=== PATIENT | male | born 1965 | race Caucasian/White ===

== ENCOUNTER 2017-12-03 06:23 | Emergency (ER) | payer MEDICAID ==
--- NOTE | 2017-12-03 07:00 | EDPHY ---
H & P Stated Complaint: general fatigue cough wt loss dizzy for weeks Time Seen by Provider: 12/03/17 06:53 HPI/ROS: CHIEF COMPLAINT: Intermittent chest pain HISTORY OF PRESENT ILLNESS: The patient presents the ED with weeks of intermittent nonexertional chest pain. The patient was seen in the ED approximately a month ago with similar symptoms. He had a negative workup at that point time and was referred to primary care. He tells me he has not been able to have a follow-up appointment because of his work schedule. The patient complains of ongoing intermittent symptoms of chest pain, fatigue and slight dyspnea. The patient denies any asymmetric calf pain or swelling. He denies additional acute complaints. The patient takes no regular medications. REVIEW OF SYSTEMS: A comprehensive 10 point review of systems is otherwise negative aside from elements mentioned in the history of present illness. Source: Patient Exam Limitations: No limitations - Personal History Current Tetanus/Diphtheria Vaccine: No Current Tetanus Diphtheria and Acellular Pertussis (TDAP): No - Medical/Surgical History Hx Asthma: No Hx Chronic Respiratory Disease: No Hx Diabetes: No Hx Cardiac Disease: No Hx Renal Disease: No Hx Cirrhosis: No Hx Alcoholism: Yes Hx HIV/AIDS: No Hx Splenectomy or Spleen Trauma: No Other PMH: Pneumothorax - Family History Significant Family History: No pertinent family hx - Social History Smoking Status: Current every day smoker - Physical Exam Exam: General Appearance: Alert, no distress Eyes: Pupils equal and round no pallor or injection ENT, Mouth: Mucous membranes moist Respiratory: There are no retractions, lungs are clear to auscultation Cardiovascular: Regular rate and rhythm Gastrointestinal: Abdomen is soft and nontender, no masses, bowel sounds normal Neurological: A&O, normal motor function, normal sensory exam, normal cranial nerves Skin: Warm and dry, no rashes Musculoskeletal: Neck is supple nontender Extremities: symmetrical, full range of motion Psychiatric: Patient is oriented X 3, there is no agitation Constitutional: Initial Vital Signs Temperature (C) 36.8 C 12/03/17 06:26 Heart Rate 77 12/03/17 06:26 Respiratory Rate 18 12/03/17 06:26 Blood Pressure 120/74 12/03/17 06:26 O2 Sat (%) 93 12/03/17 06:26 O2 Delivery Mode Room Air Allergies/Adverse Reactions: No Known Allergies Allergy (Unverified 10/31/17 13:04) Home Medications: Medication Instructions Recorded NK [No Known Home Meds] 10/31/17 Medical Decision Making - Diagnostics EKG Interpretation: EKG: Complete interpretation has been separately recorded in the [facility] archive. Summary impression: Sinus rhythm, rate 68 ED Course/Re-evaluation: The patient presents to the ED with complaints of intermittent chest pain, fatigue and weakness for the past several weeks. I reviewed the results of his workup from the emergency department 1 month ago. At that point time the patient was referred to a primary care provider and has not yet made that appointment. Workup in the emergency department today continues to demonstrate a normal EKG. The patient's troponin continues to be undetectable. The patient did have a negative chest x-ray performed 1 month ago. He has no acute respiratory symptoms and I feel does not need to have a repeat study. Additionally, the patient had a negative D-dimer which I feel adequately excludes pulmonary embolism in this low risk by Wells criteria patient. I do feel the patient is low risk with a HEART score of 2 for age and smoking. The patient will be referred to our on-call glycerin supervisor for consideration of a treadmill stress test for further evaluation of his symptoms. The patient has been informed that he should follow up with the primary care provider he was referred to previously. He will be discharged home with customary aftercare instructions and return precautions. Differential Diagnosis: Differential diagnosis considered includes gastroesophageal reflux disease, pulmonary embolism, acute coronary syndrome, anemia, pericarditis - Data Points Laboratory Results: Laboratory Results 12/03/17 07:22 12/03/17 07:22 12/03/17 12/03/17 12/03/17 07:32 07:22 07:22 WBC RBC Hgb Hct MCV MCH MCHC RDW Plt Count MPV Neut % (Auto) Lymph % (Auto) [place] % (Auto) Eos % (Auto) Baso % (Auto) Nucleat RBC Rel Count Absolute Neuts (auto) Absolute Lymphs (auto) Absolute Monos (auto) Absolute Eos (auto) Absolute Basos (auto) Absolute Nucleated RBC Immature Gran % Immature Gran # D-Dimer < 0.27 ug/mLFEU ug/mLFEU (0.00-0.50) Sodium 138 mEq/L mEq/L (135-145) Potassium 4.4 mEq/L mEq/L (3.3-5.0) Chloride 109 mEq/L mEq/L (97-110) Carbon Dioxide 23 mEq/l mEq/l (22-31) Anion Gap 6 mEq/L L mEq/L (8-16) BUN 20 mg/dL mg/dL (7-23) Creatinine 0.7 mg/dL mg/dL (0.7-1.3) Estimated GFR > 60 Glucose 103 mg/dL H mg/dL (70-100) Calcium 8.8 mg/dL mg/dL (8.5-10.4) POC Troponin I 0.01 ng/mL ng/mL (0.00-0.08) 12/03/17 07:22 WBC 5.50 10^3/uL 10^3/uL (3.80-9.50) RBC 4.91 10^6/uL 10^6/uL (4.40-6.38) Hgb 14.0 g/dL g/dL (13.7-17.5) Hct 41.5 % % (40.0-51.0) MCV 84.5 fL fL (81.5-99.8) MCH 28.5 pg pg (27.9-34.1) MCHC 33.7 g/dL g/dL (32.4-36.7) RDW 13.9 % % (11.5-15.2) Plt Count 236 10^3/uL 10^3/uL (150-400) MPV 8.7 fL fL (8.7-11.7) Neut % (Auto) 77.5 % H % (39.3-74.2) Lymph % (Auto) 11.8 % L % (15.0-45.0) [place] % (Auto) 7.5 % % (4.5-13.0) Eos % (Auto) 2.5 % % (0.6-7.6) Baso % (Auto) 0.5 % % (0.3-1.7) Nucleat RBC Rel Count 0.0 % % (0.0-0.2) Absolute Neuts (auto) 4.26 10^3/uL 10^3/uL (1.70-6.50) Absolute Lymphs (auto) 0.65 10^3/uL L 10^3/uL (1.00-3.00) Absolute Monos (auto) 0.41 10^3/uL 10^3/uL (0.30-0.80) Absolute Eos (auto) 0.14 10^3/uL 10^3/uL (0.03-0.40) Absolute Basos (auto) 0.03 10^3/uL 10^3/uL (0.02-0.10) Absolute Nucleated RBC 0.00 10^3/uL 10^3/uL (0-0.01) Immature Gran % 0.2 % % (0.0-1.1) Immature Gran # 0.01 10^3/uL 10^3/uL (0.00-0.10) D-Dimer Sodium Potassium Chloride Carbon Dioxide Anion Gap BUN Creatinine Estimated GFR Glucose Calcium POC Troponin I Point of Care Test Results: Chemistry 12/03/17 07:32 POC Troponin I 0.01 ng/mL ng/mL (0.00-0.08) Departure - Departure Disposition: Home, Routine, Self-Care Clinical Impression: Chest pain Condition: Good Instructions: Chest Pain (ED) Additional Instructions: 1. Based upon the testing done in the Emergency Department today we see no evidence of a heart attack. 2. We are unable to fully exclude coronary artery disease based upon the testing available in the Emergency Department. 3. For this reason, we would like you to be seen by cardiology for consideration of additional testing within the next 3 days. 4. Please contact the glycerin supervisor you have been referred to schedule this appointment as soon as possible. Their offices are typically open from 8:30am- 5pm M-F. 5. Please return to the Emergency Department immediately for any recurrent chest pain, difficulty breathing or other concerns. 6. Please schedule a follow-up appointment with primary care for further evaluation of your symptoms. You have been given the contact number for Zuly Rubin. Referrals: Spencer Cash MD [Medical Doctor] - As per Instructions Zuly Rubin MD [Medical Doctor] - As per Instructions
[2017-12-03 07:28] LABS: PLATELET COUNT 236 10^3/uL (150-400)
--- NOTE | 2017-12-03 07:57 | CPEKG ---
Test Reason : OPEN Blood Pressure : / mmHG Vent. Rate : 068 BPM Atrial Rate : 068 BPM P-R Int : 127 ms QRS Dur : 093 ms QT Int : 402 ms P-R-T Axes : 041 025 039 degrees QTc Int : 428 ms Sinus rhythm Confirmed by Ar Middleton ([id number]) on 12/03/2017 7:56:56 AM Referred By: Confirmed By:Ar Middleton
[2017-12-03 08:06] VITALS: BP 123/81
== END 2017-12-03 08:07 | disposition home or self-care (01) ==
LOC: EEVIPCON 06:23
DX: R07.9 Chest pain, unspecified (principal); F17.210 Nicotine dependence, cigarettes, uncomplicated
CPT/HCPCS: 84484-PO

== ENCOUNTER 2018-04-26 20:57 | Emergency (ER) | payer MEDICAID ==
[2018-04-26] MEDS ORDERED: IPRATROPIUM/ALBUTEROL 3 ML DEYVIAL IH ONE (22:09)
--- NOTE | 2018-04-26 22:31 | EDPHY ---
H & P Stated Complaint: STATES COUGHED UP BLOOD 30 MIN AGO, KNEE PAIN Time Seen by Provider: 04/26/18 22:01 HPI/ROS: HPI The patient presents with cough which was productive of bloody sputum earlier tonight. The patient reports a productive cough for the last 1 week associated with rhinorrhea and sore throat. Tonight at 8:00 p.m. Patient was at a grocery store and had a fit of coughing with bright red blood tinged sputum. This lasted for about 1 min and now has resolved. He has had no ongoing episodes. He is housed with multiple roommates though denies any sick contacts. He has not been exposed to anyone with tuberculosis that he knows of. He has not had any recent travel, leg swelling, personal or family history of DVT PE. REVIEW OF SYSTEMS 10 systems were reviewed and negative with the exception of the elements mentioned in the history of present illness. PMHx: History of pneumothorax Soc Hx: Lives with roommates, 1 pack per day smoking history PHYSICAL General Appearance: Alert, no distress Eyes: Pupils equal and round no pallor or injection ENT, Mouth: Mucous membranes moist Respiratory: There are no retractions, lungs are clear to auscultation with occasional wheeze Cardiovascular: Regular rate and rhythm Gastrointestinal: Abdomen is soft and non-tender, no masses, bowel sounds normal Neurological: A&O, moves all extremities Skin: Warm and dry, no rashes Musculoskeletal: Neck is supple non tender Extremities: symmetrical, full range of motion Psychiatric: Patient is oriented X 3, there is no agitation Source: Patient Exam Limitations: No limitations - Personal History Current Tetanus/Diphtheria Vaccine: No Current Tetanus Diphtheria and Acellular Pertussis (TDAP): No - Medical/Surgical History Hx Asthma: No Hx Chronic Respiratory Disease: No Hx Diabetes: No Hx Cardiac Disease: No Hx Renal Disease: No Hx Cirrhosis: No Hx Alcoholism: Yes Hx HIV/AIDS: No Hx Splenectomy or Spleen Trauma: No Other PMH: Pneumothorax, KNEE SURGERY , TBI - Social History Smoking Status: Current every day smoker Constitutional: Initial Vital Signs Temperature (C) 36.7 C 04/26/18 21:00 Heart Rate 79 04/26/18 21:00 Respiratory Rate 18 04/26/18 21:00 Blood Pressure 148/80 H 04/26/18 21:00 O2 Sat (%) 95 04/26/18 21:00 O2 Delivery Mode Room Air Allergies/Adverse Reactions: No Known Allergies Allergy (Unverified 04/26/18 21:03) Home Medications: Medication Instructions Recorded NK [No Known Home Meds] 10/31/17 Medical Decision Making - Diagnostics Imaging Results: Imaging Impressions Chest X-Ray 04/26/18 22:08 Impression: Interstitial prominence and scarring bilaterally and peribronchial wall thickening which is stable. This could be secondary to chronic bronchitis and interstitial lung disease with the lack of any interval change. Knee X-Ray 04/26/18 22:19 Impression: Evidence of underlying chondrocalcinosis in the medial and lateral compartment. Mild suprapatellar joint effusion. Differential Diagnosis: This is a 52-year-old male who presents with an episode of hemoptysis just prior to arrival, symptoms now seem to have resolved. He has been sick for the last 1 week with cough and rhinorrhea without a fever. Here, vital signs are normal, he is well-appearing. Differential diagnosis includes bronchitis, pneumonia, COPD with exacerbation, lung malignancy, pulmonary embolism, active tuberculosis, bronchiectasis. The patient improved after receiving a nebulizer. He was instructed to stop smoking as this is likely contributing to his symptomatology. His chest x-ray was unremarkable. He will be discharged home with follow-up information for primary care. - Data Points Medications Given: Discontinued Medications Albuterol Sulfate (Proventil Inh Prepack) 1 mdi TAKEHOME EDNOW ONE Stop: 04/26/18 23:17 Last Admin: 04/26/18 23:24 Dose: 1 mdi Albuterol/Ipratropium (Duoneb) 3 ml IH EDNOW ONE Stop: 04/26/18 22:10 Last Admin: 04/26/18 22:16 Dose: 3 ml Departure - Departure Disposition: Home, Routine, Self-Care Clinical Impression: Bronchitis, Left knee pain Condition: Good Instructions: Acute Bronchitis (ED) Additional Instructions: I recommend that you quit smoking as this is likely causing your cough to last. You should follow up at [facility] in 1-2 days for recheck. Return to the ER if worse in any way. I recommend you stop taking NSAIDs such as Aleve in switch to Tylenol for your knee pain. Referrals: [facility],. [Clinic] - As per Instructions
[2018-04-26] MEDS ORDERED: ALBUTEROL INH PREPACK MDI TAKEHOME ONE (23:16)
[2018-04-26 23:29] VITALS: BP 116/73
== END 2018-04-26 23:29 | disposition home or self-care (01) ==
DX: J40 Bronchitis, not specified as acute or chronic (principal); M25.562 Pain in left knee